=== PATIENT | female | born 1935 | race American Indian/Alaskan Native ===

== ENCOUNTER → 2017-10-18 | Outpatient (CLI) | payer BC ==
[~2017-10-18] MED LIST: ACEDIPPM PO; ACETYLCYSTEINE; ALBU90OI INH; ALBU90OI6 INH; ALBU90OI61 INH; AMLO10 PO; AMLO10/40 PO; AMLO5 PO; ASCO500 PO; ASPI325EC PO; ASPI81CH PO; ASPI81EC PO; ATOR80 PO; CALCA500CH PO; CAND32 PO; CEFD300 PO; CETI10 PO; CETI5 PO; CHLO500 PO; CLOP75; CYCL10 PO; Cipro500 MG PO; ERGO400 PO; ERGO50000 PO; FISH1000 PO; GLIM2; Glucosamine Ch1 EAC4 PO; HYDACE7.5 PO; ISOMON20 PO; ISOMON60ER PO; LEVSOD25 PO; LEVSOD50 PO; LISHYD2012 PO; LORA1 PO; LORTAB 7.5-3251 EACH PO; NITR.4SL; NITR.4SL SL; NITR.4TPA TOP; Norco 5-325 Ta1 EACH PO; OMEP20ER PO; OXYACE5T PO; Omeprazole20 M1 PO; PANT40; POTASSIUM99 MG PO; PROP160ER; PROP160ER PO; ROSU5; SPIR25; SPIR25 PO; ZESTORETIC 20-121 EA PO; Zofran Odt4 MG PO; Zofran Odt4 MG SL; [UNRECOGNIZED DRUG - REMARK]
== END | disposition home or self-care (01) ==
LOC: LAB EV 10:48 → LAB SHORT 10:48
DX: E11.22 Type 2 diabetes mellitus with diabetic chronic kidney disease (principal); N18.9 Chronic kidney disease, unspecified
CPT/HCPCS: 82043

== ENCOUNTER 2018-02-01 11:12 | Day surgery (SDC) | payer BC ==
[~2018-02-01] VITALS: Ht 63 cm; Wt 92.6 kg
== END 2018-02-01 14:19 | disposition home or self-care (01) ==
LOC: ORSCSDS 11:12
PROVIDERS: Ophthalmology
PROC: 08RK3JZ Replacement of Left Lens with Synthetic Substitute, Percutaneous Approach (ICD-10-PCS; principal; 2018-02-01 12:30)
DX: H25.12 Age-related nuclear cataract, left eye (principal); I10 Essential (primary) hypertension; G47.33 Obstructive sleep apnea (adult) (pediatric); J44.9 Chronic obstructive pulmonary disease, unspecified; E11.9 Type 2 diabetes mellitus without complications; I25.2 Old myocardial infarction; E03.9 Hypothyroidism, unspecified; E66.01 Morbid (severe) obesity due to excess calories; Z68.36 Body mass index [BMI] 36.0-36.9, adult; Z79.82 Long term (current) use of aspirin; Z79.899 Other long term (current) drug therapy
CPT/HCPCS: 82947; J2001; J3010; J7120; V2632

== ENCOUNTER 2018-05-15 20:32 | Inpatient (IN) | payer MEDICARE, BC ==
[~2018-05-15] VITALS: Ht 160 cm; Wt 94.0 kg
[~2018-05-15 20:32] MED LIST changes: +CETI5; +CRANBERRY PO; +FISH OIL 500 M1 EAC1 PO; +GLUCOSAMINE 1500 PO; +LISI5 PO; +Norco 7.5-3251 EACH PO; +OMEPRAZOLE MAGN20 MG PO; +Propranolol HCl80 MG PO; +Robaxin500 MG PO
[2018-05-15] MEDS ORDERED: AMLO5 PO (21:55)
[2018-05-15] MEDS ORDERED: ASPI81CH PO (21:56)
[2018-05-15] MEDS ORDERED: ATOR80 PO (21:56)
[2018-05-15] MEDS ORDERED: CRANBERRY250 MG PO (21:57)
[2018-05-15] MEDS ORDERED: FISH OIL 500 M1 EAC1 PO (21:58)
[2018-05-15] MEDS ORDERED: Flovent Diskus50 MCG IH (21:59)
[2018-05-15] MEDS ORDERED: HYDR-86 (22:00)
[2018-05-15] MEDS ORDERED: GLUC500 PO (22:00)
[2018-05-15] MEDS ORDERED: LEVSOD125 PO (22:01)
[2018-05-15] MEDS ORDERED: ISOMON20 (22:01)
[2018-05-15] MEDS ORDERED: LIDO700A20 TOP (22:01)
[2018-05-15] MEDS ORDERED: MIRALAX17 GM PO (22:02)
[2018-05-15] MEDS ORDERED: NITR.4SL SL (22:02)
[2018-05-15] MEDS ORDERED: LISI5 PO (22:02)
[2018-05-15] MEDS ORDERED: Omeprazole20 M1 (22:03)
[2018-05-15] MEDS ORDERED: ALBU90OI61 INH (22:03)
[2018-05-15] MEDS ORDERED: PROP160ER PO (22:03)
[2018-05-15] MEDS ORDERED: METCAR500 PO (22:04)
[2018-05-15] MEDS ORDERED: CETI5 PO (22:29)
[2018-05-15] MEDS ORDERED: ASCO500 PO (22:29)
[2018-05-15] MEDS ORDERED: SPIR25 PO (22:29)
[2018-05-16 00:30] LABS: BASOPHILS ABSOLUTE AUTO 0.07 K/mm3 (0.00-0.23); BASOPHILS PERCENT AUTO 1 % (0-2); EOSINOPHILS ABSOLUTE AUTO 0.38 K/mm3 (0.00-0.68); EOSINOPHILS PERCENT AUTO 4 % (0-6); Hematocrit 32.9 % (33.0-51.0); Hemoglobin 10.5 g/dL (11.5-16.0); IMMATURE GRAN ABSOLUTE AUTO 0.04 K/mm3 (0.00-0.10); IMMATURE GRAN PERCENT AUTO 1 % (0-1); LYMPHOCYTES ABSOLUTE AUTO 2.48 K/mm3 (0.84-5.20); LYMPHOCYTES PERCENT AUTO 28 % (21-46); MONOCYTES ABSOLUTE AUTO 0.86 K/mm3 (0.16-1.47); MONOCYTES PERCENT AUTO 10 % (4-13); Mean Corpuscular HGB 30.7 pg (26.0-34.0); Mean Corpuscular HGB Conc 31.9 g/dL (31.5-36.5); Mean Corpuscular Volume 96 fL (80-100); Mean Platelet Volume 9.9 fL (9.1-12.4); NEUTROPHILS ABSOLUTE AUTO 4.89 K/mm3 (1.96-9.15); NEUTROPHILS PERCENT AUTO 56 % (41-73); Platelet Count 182 K/mm3 (150-400); RDW Coefficient Variation 13.5 % (11.7-14.2); RDW Standard Deviation 48.2 fL (35.1-46.3); Red Blood Cell Count 3.42 M/mm3 (3.80-5.20); White Blood Cell Count 8.72 K/mm3 (4.00-11.30)
[2018-05-16 00:42] LABS: International Normalized Ratio 1.01; Prothrombin Time Results 10.4 Sec (9.7-11.5)
[2018-05-16 00:47] LABS: Albumin, Blood 3.2 g/dL (3.4-5.0); Albumin/Globulin Ratio 0.8 (0.8-1.8); Bilirubin, Total 0.6 mg/dL (0.1-1.0); Bun/Creatinine Ratio 22.3 (12.0-20.0); Calcium, Blood 8.6 mg/dL (8.5-10.1); Creatinine, Blood 1.12 mg/dL (0.40-1.00); Globulin, Blood 4.2 g/dL (2.2-4.0); Potassium, Blood 4.5 mmol/L (3.5-5.5); Total Protein, Blood 7.4 g/dL (6.4-8.2)
[2018-05-16 02:28] LABS: Hematocrit 32.8 % (33.0-51.0); Hemoglobin 10.5 g/dL (11.5-16.0); Mean Corpuscular HGB 31.1 pg (26.0-34.0); Mean Corpuscular Volume 97 fL (80-100); Mean Platelet Volume 9.8 fL (9.1-12.4); Platelet Count 179 K/mm3 (150-400); RDW Coefficient Variation 13.5 % (11.7-14.2); RDW Standard Deviation 48.4 fL (35.1-46.3); Red Blood Cell Count 3.38 M/mm3 (3.80-5.20); White Blood Cell Count 8.26 K/mm3 (4.00-11.30)
[2018-05-16 02:49] LABS: Albumin, Blood 3.3 g/dL (3.4-5.0); Albumin/Globulin Ratio 0.8 (0.8-1.8); Bilirubin, Total 0.7 mg/dL (0.1-1.0); Calcium, Blood 8.6 mg/dL (8.5-10.1); Creatinine, Blood 1.09 mg/dL (0.40-1.00); Globulin, Blood 4.2 g/dL (2.2-4.0); Potassium, Blood 4.2 mmol/L (3.5-5.5); Total Protein, Blood 7.5 g/dL (6.4-8.2)
--- NOTE | 2018-05-16 06:37 | NUR ---
SHIFT SUMMARY PT SLEPT ONLY A FEW HOURS AFTER ARRIVING TO FLOOR AROUND 0115 THIS AM. AOX4. VSS. DENIES N/V @THIS TIME. REPORTS SOB @TIMES BUT DENIES ANY WHILE @REST AT THIS TIME. REPORTS 7/10 PAIN IN LEFT LEG & STATES SHE HAS HAD A HEADACHE SINCE LAST NIGHT, MEDICATED 1X W/2TABS OF 7.5MG NORCO PER ORDERS & PAIN HAS REDUCED TO 4/10. LEFT LEG IS TENDER, SWOLLEN, RED & WARM TO TOUCH. PT IS ABLE TO TRANSFER TO [facility] W/SBA. DAUGHTER HAS BEEN @BEDSIDE T/O NIGHT & CALL LIGHT IS IN REACH.
--- NOTE | 2018-05-16 18:38 | NUR ---
SHIFT SUMMARY PT HAS HAD NO ACUTE CHANGES THIS SHIFT, MEDICATED 2X FOR PAIN, NO OTHER COMPLAINTS OF ANY KIND. PT SCHEDULED FOR PROCEDURE IN AM, NPO AT MIDNIGHT, PT AWARE, CONSENT SIGNED. PT IS BEDRESTING AT THIS TIME W/DAUGHTER AT WILL CONT TO MONITOR UNTIL REPORT GIVEN TO NOC RN.
--- NOTE | 2018-05-17 04:41 | NUR ---
HEPRIN STOP ORDER PT HEPRIN DRIP WITH BE STOPPED AT [address] Shields VIA TELEPHONE ORDER. PT IS GOING TO RAIL DOWELING MACHINE OPERATOR FIRST THEN TO ICU. PT WILL BE GOING BACK TO RAIL DOWELING MACHINE OPERATOR AFTER PERIOD IN ICU. aPTT IS BEING COLLECTED AT 0600 HRS.
--- NOTE | 2018-05-17 05:42 | NUR ---
SHIFT SUMMARY PT HAD UNEVENTFUL SHIFT. PT HAD NO ACUTE CHANGES NOTED. PT HEPRIN IS BEING DC'D AT 0600 HRS AND GOING TO ONLINE COMMUNICATIONS MANAGER THIS AM. PT IS CURRENTLY BREATHING EASY AND COMFORTABLE. CALL LIGHT IN REACH AND FAMILY ARE PRESENT.
[2018-05-17 06:16] LABS: BASOPHILS ABSOLUTE AUTO 0.08 K/mm3 (0.00-0.23); BASOPHILS PERCENT AUTO 1 % (0-2); EOSINOPHILS PERCENT AUTO 4 % (0-6); Hematocrit 27.8 % (33.0-51.0); Hemoglobin 8.9 g/dL (11.5-16.0); IMMATURE GRAN ABSOLUTE AUTO 0.08 K/mm3 (0.00-0.10); IMMATURE GRAN PERCENT AUTO 1 % (0-1); LYMPHOCYTES ABSOLUTE AUTO 2.95 K/mm3 (0.84-5.20); LYMPHOCYTES PERCENT AUTO 35 % (21-46); MONOCYTES PERCENT AUTO 11 % (4-13); Mean Corpuscular HGB 30.7 pg (26.0-34.0); Mean Corpuscular Volume 96 fL (80-100); Mean Platelet Volume 9.9 fL (9.1-12.4); NEUTROPHILS ABSOLUTE AUTO 4.21 K/mm3 (1.96-9.15); NEUTROPHILS PERCENT AUTO 50 % (41-73); Platelet Count 188 K/mm3 (150-400); RDW Coefficient Variation 13.6 % (11.7-14.2); RDW Standard Deviation 48.1 fL (35.1-46.3); White Blood Cell Count 8.52 K/mm3 (4.00-11.30)
[2018-05-17 06:35] LABS: Albumin, Blood 2.7 g/dL (3.4-5.0); Albumin/Globulin Ratio 0.8 (0.8-1.8); Bilirubin, Total 0.4 mg/dL (0.1-1.0); Bun/Creatinine Ratio 18.6 (12.0-20.0); Calcium, Blood 8.3 mg/dL (8.5-10.1); Creatinine, Blood 1.72 mg/dL (0.40-1.00); Globulin, Blood 3.6 g/dL (2.2-4.0); Potassium, Blood 4.7 mmol/L (3.5-5.5); Total Protein, Blood 6.3 g/dL (6.4-8.2)
--- NOTE | 2018-05-17 07:02 | NUR ---
PT BEING TAKEN DOWN TO THE BELT BUCKLE MAKER, FAMILY MEMBERS IN THE ROOM AND AWARE
--- NOTE | 2018-05-17 09:51 | NUR ---
PT ARRIVED FROM [facility] AT 0930. PT IS ALERT AND ORIENTED. TPA AND HEPARIN INFUSING INTO ANGIO SITE IN LLE. LLE IS SWOLLEN, PINK, AND WARM. PT STATES SHE HAS A LITTLE BIT OF TINGLING IN HER L TOES, BUT HAS GOOD CAP REFILL AND PULSE. PT'S FAMILY AT THE BEDSIDE. ALL INSTRUCTED IN PT'S ACTIVITY RESTRICTIONS. PT VERBALIZES UNDERSTANDING. PLAN OF CARE REVIEWED WITH PT AND ALL QUESTIONS ANSWERED.
[2018-05-17 10:22] LABS: Hematocrit 32.3 % (33.0-51.0); Hemoglobin 9.8 g/dL (11.5-16.0)
--- NOTE | 2018-05-17 11:46 | NUR ---
REASSESSMENT: PT VISITED WITH FAMILY AND HAS BEEN SLEEPING SINCE. SHE CONTINUES TO MAINTAIN SPO2 GREATER THAN 95% ON RA. LUNGS ARE CLEAR, SR, BP HAS BEEN STABLE, SEE VITALS. LLE REMAINS PINK AND WARM, STRONG PEDAL PULSE, EDEMA UNCHANGED. CONTINUING TO MONITOR.
--- NOTE | 2018-05-17 12:43 | NUR ---
DR. CHAO BY TO SEE PT. TPA TURNED DOWN TO 0.5MG/HR PER DR. HORNE'S ORDERS.
--- NOTE | 2018-05-17 16:18 | NUR ---
PT TAKEN BACK TO FOUR SLIDE OPERATOR AT 1530. CONSULT CALLED TO DR. BUSTAMANTE, SEE ORDERS.
--- NOTE | 2018-05-17 18:00 | NUR ---
PT BACK FROM [employer]PER[employer]OR [employer] MAKING DEPARTMENT. SHEATH IS OUT OF L POPLITEAL VEIN AND SITE IS C/D/I, SOFT, NO HEMATOMA. PT IS ORIENTED, A LITTLE DROWSY. SPO2 90% ON RA, PLACED ON 1L/NC AND SPO2 94%. DENIES PAIN AT THIS TIME. CONTINUE TO MONITOR.
[2018-05-17 18:11] LABS: Source, Urine Clean Catch
[2018-05-17 18:24] LABS: Appearance, Urine Clear (Clear); Bilirubin, Urine Neg (Neg); Blood, Urine 1+ (Neg); Color, Urine Yellow (P-Yellow); Glucose Qualitative, Urine Neg (Neg); Ketones, Urine Neg (Neg); Leukocyte Esterase, Urine 1+ (Neg); Nitrite, Urine Neg (Neg); Protein, Urine 2+ (Neg); Urobilinogen, Urine NORM (Normal)
--- NOTE | 2018-05-17 19:15 | NUR ---
ASSUMED PT CARE RECEIVED REPORT FROM SUKHDEV WRIGHT. PT IS ALERT AND ORIENTED RESTING IN BED WITH FAMILY AT BEDSIDE. SITE TO LEFT POPLITEAL ASSESSED TOGETHER; MINIMAL OOZING TO CENTER OF DRESSING THAT APPEARS DRIED; TENDER UPON PALPATION; WARM AND RED AROUND SITE; NO HEMATOMA PALPATED. NS INFUSING AT 75MLS/HR VIA 20G IN RIGHT FOREARM. PT STATES 9/10 PAIN TO BACK; OFFERED REPOSITIONING. PT REQUESTED PRN PAIN MEDICATION; PAIN MEDICATION OBTAINED PER ORDERS. PT ALSO REQUESTED FOOD; SAT UP AT 90 DEGREES AND PT RECEIVED HALF OF A TURKEY SANDWICH. PT DOES NOT APPEAR TO BE IN ANY ACUTE DISTRESS AT THIS TIME.
[2018-05-17 19:26] LABS: Bacteria Few /hpf; Squamous Epithelial Cells Few /hpf (Few)
--- NOTE | 2018-05-17 20:00 | NUR ---
LEFT POPLITEAL SITE REMAINS TENDER TO THE TOUCH, WARM, NO OOZING AT SITE, WITH NO SIGNS OF HEMATOMA PALPATED AROUND SITE.
--- NOTE | 2018-05-17 21:00 | NUR ---
LEFT POPLITEAL SITE REMAINS WARM, RED, AND TENDER TO THE TOUCH; NO OOZING FROM SITE; NO SIGNS OF HEMATOMA PALPATED AROUND SITE. HEPARIN GTT CONTINUES TO INFUSE.
--- NOTE | 2018-05-17 22:00 | NUR ---
CPAP PT PLACED ON CPAP D/T OXYGEN SATURATIONS DECLINING TO MID 80'S
--- NOTE | 2018-05-17 22:00 | NUR ---
LEFT POPLITEAL SITE REMAINS WARM, RED, AND TENDER TO THE TOUCH; NO OOZING FROM SITE; NO SIGNS OF A HEMATOMA PALPATED; HEPARIN GTT CONTINUES TO INFUSE.
[2018-05-18 03:36] LABS: BASOPHILS ABSOLUTE AUTO 0.06 K/mm3 (0.00-0.23); BASOPHILS PERCENT AUTO 1 % (0-2); EOSINOPHILS ABSOLUTE AUTO 0.26 K/mm3 (0.00-0.68); EOSINOPHILS PERCENT AUTO 4 % (0-6); Hematocrit 26.4 % (33.0-51.0); Hemoglobin 8.4 g/dL (11.5-16.0); IMMATURE GRAN ABSOLUTE AUTO 0.08 K/mm3 (0.00-0.10); IMMATURE GRAN PERCENT AUTO 1 % (0-1); LYMPHOCYTES ABSOLUTE AUTO 2.27 K/mm3 (0.84-5.20); LYMPHOCYTES PERCENT AUTO 30 % (21-46); MONOCYTES ABSOLUTE AUTO 0.81 K/mm3 (0.16-1.47); MONOCYTES PERCENT AUTO 11 % (4-13); Mean Corpuscular HGB Conc 31.8 g/dL (31.5-36.5); Mean Corpuscular Volume 97 fL (80-100); Mean Platelet Volume 10.2 fL (9.1-12.4); NEUTROPHILS PERCENT AUTO 54 % (41-73); Platelet Count 176 K/mm3 (150-400); RDW Coefficient Variation 13.7 % (11.7-14.2); RDW Standard Deviation 48.8 fL (35.1-46.3); Red Blood Cell Count 2.71 M/mm3 (3.80-5.20); White Blood Cell Count 7.48 K/mm3 (4.00-11.30)
[2018-05-18 03:52] LABS: Albumin, Blood 2.4 g/dL (3.4-5.0); Anion Gap 6 mmol/L (6-16); Blood Urea Nitrogen 21 mg/dL (8-24); Bun/Creatinine Ratio 20.6 (12.0-20.0); CO2, Blood 22 mmol/L (21-32); Calcium, Blood 7.8 mg/dL (8.5-10.1); Chloride, Blood 116 mmol/L (98-108); Creatinine, Blood 1.02 mg/dL (0.40-1.00); Glomerular Filtration Rate 55 (60-); Glucose, Blood 117 mg/dL (70-99); Magnesium, Blood 1.9 mg/dL (1.6-2.4); Phosphorus, Blood 2.7 mg/dL (2.5-4.9); Potassium, Blood 4.5 mmol/L (3.5-5.5); Sodium, Blood 144 mmol/L (136-145)
--- NOTE | 2018-05-18 06:22 | NUR ---
END OF SHIFT SUMMARY SITE TO LEFT POPLITEAL HAS REMAINED WARM TO THE TOUCH, TENDER UPON PALPATION, NO OOZING NOTED, WELL NO SIGNS OF A HEMATOMA; DRESSING REMAINS CDI. PT STATES SHE HAS A PAIN ON THE SIDE OF HER FOOT; STATES IT "KIND OF FEELS LIKE NUMBNESS/TINGLING". HEAVY BLANKETS WERE RELIEVED OFF OF FOOT AND LEG WAS ELEVATED ON A PILLOW. PT HAS BEEN MEDICATED WITH PRN PERCOCET IS REQUESTED, AND PER ORDERS. PT CONTINUES WITH HEPARIN INFUSING AT 21UNITS/KG, WELL NS AT 50MLS/HR. PT'S OXYGEN SATURATIONS CONTINUED TO DECLINE T/O NIGHT; PT STATES SHE IS "SUPPOSED" TO WEAR A CPAP AT HOME, BUT CAN'T TOLERATE THE TIES AROUND THE MASK. ENCOURAGED PT TO GO SPEAK WITH ILENE REGARDING THE DIFFERENT TYPES OF MASKS AND TIES; REINFORCED HOW MUCH SHE WAS DECLINING IN OXYGEN SATURATIONS WITHOUT THE CPAP. PT AGREED TO TRY THE CPAP HERE, BUT ENDED UP REMOVING IT AFTER APPROXIMATELY TWO HOURS AND WENT TO 5L OF OXYGEN VIA FACE MASK. PT HAS BEEN PLEASANT AND COOPERATIVE; VERY SORE AND TENDER. PT APPEARS COMFORTABLE AT THIS TIME WITH FAMILY AT BEDSIDE.
--- NOTE | 2018-05-18 07:30 | NUR ---
ASSUMED CARE OF PATIENT; SEE ASSESSMENT CHARTING FOR DETAILS. PATIENT SLEEPY BUT ROUSES EASILY AND IS ORIENTED AND COOPERATIVE; DAUGHTER AT BEDSIDE. PAIN TO RLE; MEDICATED PO, PRN WITH FAIR CONTROL. BILAT. FEET WARM WITH GOOD COLOR AND PULSES. NO S/SX'S OF HEMATOMA TO RLE. REMAINS ON HEPARIN INFUSION; CURRENTLY AT 21U/KG/HR; REPEAT PTT AT 1000AM. FIELDS TO GRAVITY; WILL REMOVE ONCE PATIENT TOLERATING OOB WITHOUT DIFFICULTY. REMAINS PCU STATUS; NO BEDS AVAILABLE.
--- NOTE | 2018-05-18 09:30 | NUR ---
BATHED AND THEN ASSISTED OOB (WALKER AND SBA) TO CHAIR; DIAMOND QUIGLEY. DC'D PRIOR TO BATH. HAIR SHAMPOOED WHEN UP IN CHAIR; TAM. WELL. DAUGHTER AT BEDSIDE.
--- NOTE | 2018-05-18 09:50 | NUR ---
DR. SNOW ([facility]/PCP) IN TO SEE PATIENT; SEE ORDERS. PAIN MEDS. READJUSTED AND KNEE HIGH RYAN ORDERED FOR LLE.
--- NOTE | 2018-05-18 14:51 | NUR ---
UP TO BEDSIDE COMMODE; VOIDED 530ML OF [place] COLORED URINE. UP WITH WALKER AND SBA.
--- NOTE | 2018-05-18 18:00 | NUR ---
SUMMARY: ASSISTED IN/OUT OF BED BUT ABLE TO TRANSFER SELF WITH USE OF WALKER. BALANCE GOOD AND ENDURANCE ADEQUATE. ON 4L/NC T/O MOST OF DAY. ORAL PAIN MEDS GIVEN ABOUT EVERY 4 HOURS; BACK SPASMS AND PAIN TO LLE. GOOD CIRCULATION TO BILAT. LE'S.; L LEG/FOOT WARMER THAN R AND MORE SWOLLEN; RYAN HOSE IN PLACE. NO ISSUES VOIDING SINCE DIAMOND ADKINS THIS AM. WILL REPORT TO ONCOMING RN.
--- NOTE | 2018-05-18 18:39 | NUR ---
T/C TO PHARMACIST, DELLA, RE: PTT RESULT OF 65.7 SEC; HEPARIN GTT TO CONTINUE AT 21U/KG/HR AND REPEAT LAB IN AM.
--- NOTE | 2018-05-18 19:00 | NUR ---
[place] of Care: Patient alert and oriented x4, sitting upright in bed watching tv. Denies dyspnea/SOB, O2-96% on 2L/NC, VSS. C/O pain to back (chronic), 12/22 plan to give prn pain medications and continue to monitor. C/o pain to left leg at rest 07/22 also tender to touch, patient states pain is much better than before her peripheral interventions, 1 + edema noted, compression stocking in place, no redness or excess warmth. Heparin gtt infusing at 21u/kg/hr doses at 68kg, confirmed with EMAR, next PTT at 0500hr. Pleasant and cooperative with staff, makes needs known, call light in reach. Will continue to monitor for pain, comfort, safety.
[2018-05-19 03:40] LABS: BASOPHILS ABSOLUTE AUTO 0.05 K/mm3 (0.00-0.23); BASOPHILS PERCENT AUTO 1 % (0-2); EOSINOPHILS ABSOLUTE AUTO 0.31 K/mm3 (0.00-0.68); EOSINOPHILS PERCENT AUTO 4 % (0-6); Hematocrit 25.6 % (33.0-51.0); Hemoglobin 8.1 g/dL (11.5-16.0); IMMATURE GRAN ABSOLUTE AUTO 0.11 K/mm3 (0.00-0.10); IMMATURE GRAN PERCENT AUTO 2 % (0-1); LYMPHOCYTES PERCENT AUTO 37 % (21-46); MONOCYTES ABSOLUTE AUTO 0.73 K/mm3 (0.16-1.47); MONOCYTES PERCENT AUTO 10 % (4-13); Mean Corpuscular HGB 30.6 pg (26.0-34.0); Mean Corpuscular HGB Conc 31.6 g/dL (31.5-36.5); Mean Corpuscular Volume 97 fL (80-100); Mean Platelet Volume 10.4 fL (9.1-12.4); NEUTROPHILS ABSOLUTE AUTO 3.34 K/mm3 (1.96-9.15); NEUTROPHILS PERCENT AUTO 46 % (41-73); NRBC ABSOLUTE 0.02 K/mm3 (0.00-0.02); NRBC Auto 0.3 /100 WBC (0.0-0.2); Platelet Count 189 K/mm3 (150-400); RDW Coefficient Variation 13.7 % (11.7-14.2); RDW Standard Deviation 48.2 fL (35.1-46.3); Red Blood Cell Count 2.65 M/mm3 (3.80-5.20); White Blood Cell Count 7.24 K/mm3 (4.00-11.30)
[2018-05-19 03:58] LABS: Magnesium, Blood 1.9 mg/dL (1.6-2.4)
[2018-05-19 03:59] LABS: Albumin, Blood 2.3 g/dL (3.4-5.0); Anion Gap 5 mmol/L (6-16); Blood Urea Nitrogen 17 mg/dL (8-24); Bun/Creatinine Ratio 17.1 (12.0-20.0); CO2, Blood 25 mmol/L (21-32); Calcium, Blood 8.2 mg/dL (8.5-10.1); Chloride, Blood 114 mmol/L (98-108); Creatinine, Blood 0.99 mg/dL (0.40-1.00); Glomerular Filtration Rate 57 (60-); Glucose, Blood 107 mg/dL (70-99); Potassium, Blood 4.6 mmol/L (3.5-5.5); Sodium, Blood 144 mmol/L (136-145)
--- NOTE | 2018-05-19 05:39 | NUR ---
Shift Summary: Patient slept well throughout shift, easily roused via verbal stimuli, oriented x4. C/O back effective managed with prn [place] x2 tabs before bed, and x1 prn Percocet late in shift. Denies dyspnea and SOB, O2-91-94% on 2L/NC. Transferring to [facility] via stand-by assist without difficulty. Voiding without difficulty, light yellow clear urine. Heparin gtt continued at 21u/kg/hr throughout shift, no change in rate (per pharmacy) with morning PTT values, Next PTT at 1000hr. Peripheral IV to RFA remains patent and intact. No change noted to LLE, remains at 1+ edema, tender to touch, no redness, compression stocking in place throughout shift. Will continue to monitor until report to day shift RN.
--- NOTE | 2018-05-19 07:15 | NUR ---
DR. BUSTAMANTE HERE; SEE ORDERS.
--- NOTE | 2018-05-19 07:20 | NUR ---
ASSUMED CARE OF PATIENT; SEE ASSESSMENT CHARTING FOR DETAILS. PATIENT ALERT/COOPERATIVE. CHRONIC PAIN TO LOWER BACK; WORSE WHEN SPASMS DEVELOP; MEDICATED PO, PRN. LUNGS CLEAR; OXYGEN AT 2L/MIN VIA NC. UP TO BSC WITH MINIMAL ASSIST.; WALKER USED/BALANCE GOOD; VOIDING LARGE AMOUNTS OF MED. TO LT. YELLOW URINE. SWELLING REMAINS TO LLE (FOOT AND CALF); KNEE HIGH RYAN HOSE IN PLACE. PAIN LESS ACUTE TO AFFECTED LEG, SINCE STENT PLACED.
--- NOTE | 2018-05-19 09:00 | NUR ---
DR. SNOW (HOSP.) HERE; TO TALK TO RADIOLOGY INTERVENTIONALIST RE: ANTICOAG. SANDERS (POC).
--- NOTE | 2018-05-19 09:55 | NUR ---
LAB HERE; DRAWING PTT PER ORDER. HEPARIN GTT REMAINS 21 UNITS/KG/MIN.
--- NOTE | 2018-05-19 10:15 | NUR ---
HEPARIN DRIP DISCONTINUED; XARELTO TO BE GIVEN BID PO.
--- NOTE | 2018-05-19 12:30 | NUR ---
UP FOR BRP; NO BM; STOOL SOFTENER AND PAIN MED. GIVEN.
--- NOTE | 2018-05-19 16:30 | NUR ---
UP TO BSC WITH WALKER AND STANDBY ASSIST; HAD 1 SMALL HARD STOOL AND VOIDED 600ML/ URINE LT. YELLOW.
--- NOTE | 2018-05-19 17:32 | NUR ---
SUMMARY: NO ACUTE CHANGES. DR. SNOW MADE ROUNDS, AGAIN, THIS EVENING; OK GIVEN TO GIVE TUMS PRN FOR INDIGESTION. PATIENT C/O MILD GI UPSET; ZOFRAN IV GIVEN AND PRILOSEC, ALSO. PROBABLE D/C TOMORROW, PER DR. SNOW. DISCUSSED WITH PATIENT PRECAUTIONARY MEASURES RELATING TO XARELTO (BLOOD THINNERS). IVF'S ETC REMAIN OFF. MAJORITY OF PAIN IN BACK; LLE LESS PAINFUL; SOME SWELLING REMAINS PRESENT. UP FOR BRP WITH WALKER AND SBA. OXYGEN DOWN TO 1LITER/MIN VIA NC; BIOX. READINGS STAYING 93 -97%.
--- NOTE | 2018-05-19 19:00 | NUR ---
[place] of Care: Patient alert and oriented x4, sitting upright in bed watching tv. Denies dyspnea or SOB, O2-94%on 2L/NC, VSS. C/o back pain 8/ prn [place] given, will monitor for effect. Peripheral IV x1 patent and intact. Compression stocking in place to lt leg, patient c/o tender to touch (no change r/t last NOC), swelling appears slightly decreased now at 1-2+, and no redness noted. Call light in reach, makes needs known. Will continue to monitor for pain, comfort, safety.
[2018-05-20 03:39] LABS: Hematocrit 26.5 % (33.0-51.0); Hemoglobin 8.5 g/dL (11.5-16.0)
[2018-05-20 03:57] LABS: Albumin, Blood 2.5 g/dL (3.4-5.0); Anion Gap 8 mmol/L (6-16); Blood Urea Nitrogen 16 mg/dL (8-24); Bun/Creatinine Ratio 17.4 (12.0-20.0); CO2, Blood 24 mmol/L (21-32); Calcium, Blood 8.6 mg/dL (8.5-10.1); Chloride, Blood 112 mmol/L (98-108); Creatinine, Blood 0.92 mg/dL (0.40-1.00); Glomerular Filtration Rate >60 (60-); Glucose, Blood 99 mg/dL (70-99); Magnesium, Blood 1.7 mg/dL (1.6-2.4); Phosphorus, Blood 3.2 mg/dL (2.5-4.9); Potassium, Blood 4.6 mmol/L (3.5-5.5); Sodium, Blood 144 mmol/L (136-145)
--- NOTE | 2018-05-20 06:02 | NUR ---
Shift Summary: Patient slept well throughout shift, easily roused via verbal stimuli, oriented x4. Continues to deny dyspnea/SOB, VSS. C/o back pain effectively managed with prn medications. No changes noted to LLE, 1-2 + edema, mild pain to touch, cap refill wnl, warm, no redness, compression stocking in place. Transferring to bedside commode via stand-by assist without difficulty. Call light in reach, makes needs known. Will continue to monitor until report to day shift RN.
[2018-05-20] MEDS ORDERED: DOCU100 PO (10:03)
[2018-05-20] MEDS ORDERED: XARELTO20 MG PO ×2 (10:06→10:10)
[2018-05-20] MEDS ORDERED: XARELTO15 MG PO (10:08)
--- NOTE | 2018-05-20 10:12 | NUR ---
Assumed Care: Assumed care of pt at approx 0700. VSS. In no apparent sign of distress. Pt is A&Ox4. Calls appropriately. C/o back and LLE pain this AM - medicated per orders. See shift assessment for detailed assessment. Pt is being discharged today. Pt titrated off oxygen shortly after shift change and is tolerating being on RA well with SpO2 >92%. Pt currently resting in bed with call light within reach. Denies any further questions, complaints or requests at this time. Will continue to monitor until discharged.
--- NOTE | 2018-05-20 11:36 | NUR ---
Discharge Pt discharged at 1130. VSS. In no apparent sign of distress. Discharged with family. Denied any further questions, complaints or requests at time of discharge. Discharge education provided. Discharged with all belongings in hand.
[2018-05-21 16:07] LABS: PROTEIN C-FUNCTIONAL 113 % (73-180); PROTEIN S-FUNCTIONAL 96 % (63-140)
== END 2018-05-20 11:30 | disposition home or self-care (01) | DRG 271 ==
LOC: ER 20:32 → MEDS 20:33 → ICUE 20:33 → MEDS 20:33 → ICUE 05-16 01:01 → MEDS 05-16 01:14 → ICUE 05-17 09:31
PROVIDERS: Emergency Medicine; Hospitalist; Internal Medicine Nephrology; Radiology Diagnostic Radiology; ADMIT Internal Medicine
PROC: 06CN3ZZ Extirpation of Matter from Left Femoral Vein, Percutaneous Approach (ICD-10-PCS; principal; 2018-05-17)
PROC: 067D3DZ Dilation of Left Common Iliac Vein with Intraluminal Device, Percutaneous Approach (ICD-10-PCS; 2018-05-17)
PROC: 067G3ZZ Dilation of Left External Iliac Vein, Percutaneous Approach (ICD-10-PCS; 2018-05-17)
PROC: 06CD3ZZ Extirpation of Matter from Left Common Iliac Vein, Percutaneous Approach (ICD-10-PCS; 2018-05-17)
PROC: 06CG3ZZ Extirpation of Matter from Left External Iliac Vein, Percutaneous Approach (ICD-10-PCS; 2018-05-17)
PROC: 3E03317 Introduction of Other Thrombolytic into Peripheral Vein, Percutaneous Approach (ICD-10-PCS; 2018-05-17)
PROC: B549ZZ3 Ultrasonography of Inferior Vena Cava, Intravascular (ICD-10-PCS; 2018-05-17)
DX: I87.1 Compression of vein (principal); I82.412 Acute embolism and thrombosis of left femoral vein; N17.9 Acute kidney failure, unspecified; I82.422 Acute embolism and thrombosis of left iliac vein; I82.442 Acute embolism and thrombosis of left tibial vein; I82.432 Acute embolism and thrombosis of left popliteal vein; E11.22 Type 2 diabetes mellitus with diabetic chronic kidney disease; E88.09 Other disorders of plasma-protein metabolism, not elsewhere classified; E86.9 Volume depletion, unspecified; E66.9 Obesity, unspecified; D64.9 Anemia, unspecified; N18.3 Chronic kidney disease, stage 3 (moderate); I12.9 Hypertensive chronic kidney disease with stage 1 through stage 4 chronic kidney disease, or unspecified chronic kidney disease; E78.5 Hyperlipidemia, unspecified; Z96.652 Presence of left artificial knee joint; E03.9 Hypothyroidism, unspecified; K21.9 Gastro-esophageal reflux disease without esophagitis; Z79.899 Other long term (current) drug therapy; Z79.82 Long term (current) use of aspirin; Z88.8 Allergy status to other drugs, medicaments and biological substances; Z88.4 Allergy status to anesthetic agent; Z28.20 Immunization not carried out because of patient decision for unspecified reason
CPT/HCPCS: 36005; 36415; 37187; 37212; 37238; 37252; 75820; 76770; 76937; 80048; 80053; 80069; 81001; 81240; 81241; 82947; 83735; 84300; 85014; 85018; 85025; 85027; 85303; 85306; 85384; 85610; 85730; 87086; 93306; 93971; 94640; 94660; 94760; 96374; 96375; 96376; 99152; 99153; 99285-25; C1724; C1725; C1757; C1769; C1876; C1894; G0378; J1644; J2250; J2405; J3010; J7030; J7040; Q9967

== ENCOUNTER 2018-06-28 13:22 | Day surgery (SDC) | payer BC ==
[~2018-06-28] VITALS: Ht 157.5 cm; Wt 92.7 kg
[~2018-06-28 13:22] MED LIST changes: +CRANBERRY250 MG PO; +DOCU100 PO; +Flovent Diskus50 MCG IH; +GLUC500 PO; +HYDR-86; +ISOMON20; +LEVSOD125 PO; +LIDO700A20 TOP; +METCAR500 PO; +MIRALAX17 GM PO; +Omeprazole20 M1; +XARELTO15 MG PO; +XARELTO20 MG PO
== END 2018-06-28 15:10 | disposition home or self-care (01) ==
LOC: ORSCSDS 13:22
PROVIDERS: Ophthalmology
PROC: 08RJ3JZ Replacement of Right Lens with Synthetic Substitute, Percutaneous Approach (ICD-10-PCS; principal; 2018-06-28 15:00)
DX: H25.11 Age-related nuclear cataract, right eye (principal); E11.22 Type 2 diabetes mellitus with diabetic chronic kidney disease; I12.9 Hypertensive chronic kidney disease with stage 1 through stage 4 chronic kidney disease, or unspecified chronic kidney disease; N18.9 Chronic kidney disease, unspecified; I25.10 Atherosclerotic heart disease of native coronary artery without angina pectoris; J44.9 Chronic obstructive pulmonary disease, unspecified; G47.33 Obstructive sleep apnea (adult) (pediatric); E03.9 Hypothyroidism, unspecified; K21.9 Gastro-esophageal reflux disease without esophagitis; E66.01 Morbid (severe) obesity due to excess calories; Z68.37 Body mass index [BMI] 37.0-37.9, adult; Z79.82 Long term (current) use of aspirin; Z79.899 Other long term (current) drug therapy
CPT/HCPCS: 82947; J2001; J2250; J3010; V2632

== ENCOUNTER → 2018-10-15 | Outpatient (CLI) | payer BC, OTHER ==
[2018-10-15 10:43] LABS: Protein, Urine Quantitative 5.4 mg/dL (0.0-11.9)
[2018-10-15 10:47] LABS: Microalbumin, Urine Quant. <5.000 mg/L (0.000-20.000)
== END | disposition home or self-care (01) ==
LOC: LAB SHORT 09:13 → LAB 09:13
PROVIDERS: Internal Medicine Nephrology
DX: N18.2 Chronic kidney disease, stage 2 (mild) (principal); D63.1 Anemia in chronic kidney disease; N25.81 Secondary hyperparathyroidism of renal origin; E55.9 Vitamin D deficiency, unspecified; E78.00 Pure hypercholesterolemia, unspecified; D51.8 Other vitamin B12 deficiency anemias; D52.8 Other folate deficiency anemias; D50.9 Iron deficiency anemia, unspecified; R76.9 Abnormal immunological finding in serum, unspecified; R94.5 Abnormal results of liver function studies; R94.6 Abnormal results of thyroid function studies
CPT/HCPCS: 81050; 82043; 82570; 84156

== ENCOUNTER 2018-11-24 05:29 | Emergency (ER) | payer BC, OTHER ==
[~2018-11-24] VITALS: Ht 160 cm; Wt 90.7 kg
[2018-11-24 06:02] LABS: BASOPHILS ABSOLUTE AUTO 0.03 K/mm3 (0.00-0.23); BASOPHILS PERCENT AUTO 0 % (0-2); EOSINOPHILS ABSOLUTE AUTO 0.24 K/mm3 (0.00-0.68); EOSINOPHILS PERCENT AUTO 3 % (0-6); Hematocrit 37.2 % (33.0-51.0); Hemoglobin 11.7 g/dL (11.5-16.0); IMMATURE GRAN ABSOLUTE AUTO 0.01 K/mm3 (0.00-0.10); IMMATURE GRAN PERCENT AUTO 0 % (0-1); LYMPHOCYTES ABSOLUTE AUTO 1.16 K/mm3 (0.84-5.20); LYMPHOCYTES PERCENT AUTO 15 % (21-46); MONOCYTES ABSOLUTE AUTO 0.59 K/mm3 (0.16-1.47); MONOCYTES PERCENT AUTO 8 % (4-13); Mean Corpuscular HGB 30.5 pg (26.0-34.0); Mean Corpuscular HGB Conc 31.5 g/dL (31.5-36.5); Mean Corpuscular Volume 97 fL (80-100); Mean Platelet Volume 10.5 fL (9.1-12.4); NEUTROPHILS ABSOLUTE AUTO 5.48 K/mm3 (1.96-9.15); NEUTROPHILS PERCENT AUTO 73 % (41-73); Platelet Count 239 K/mm3 (150-400); RDW Coefficient Variation 13.6 % (11.7-14.2); RDW Standard Deviation 48.9 fL (35.1-46.3); Red Blood Cell Count 3.83 M/mm3 (3.80-5.20); White Blood Cell Count 7.51 K/mm3 (4.00-11.30)
[2018-11-24 06:19] LABS: Alanine Aminotransfer (ALT/SGP 28 U/L (12-78); Albumin, Blood 3.3 g/dL (3.4-5.0); Albumin/Globulin Ratio 0.8 (0.8-1.8); Alk Phos 83 U/L (50-136); Anion Gap 7 mmol/L (6-16); Aspartate Aminotrans (AST/SGOT 27 U/L (12-37); Bilirubin, Total 0.6 mg/dL (0.1-1.0); Blood Urea Nitrogen 13 mg/dL (8-24); CO2, Blood 23 mmol/L (21-32); Calcium, Blood 8.5 mg/dL (8.5-10.1); Chloride, Blood 110 mmol/L (98-108); Creatinine, Blood 0.87 mg/dL (0.40-1.00); Globulin, Blood 4.1 g/dL (2.2-4.0); Glomerular Filtration Rate >60 (60-); Glucose, Blood 132 mg/dL (70-99); Sodium, Blood 140 mmol/L (136-145); Total Protein, Blood 7.4 g/dL (6.4-8.2)
[2018-11-24 06:27] LABS: Source, Urine Catheter
[2018-11-24 06:38] LABS: Bilirubin, Urine Neg (Neg); Blood, Urine Neg (Neg); Glucose Qualitative, Urine Neg (Neg); Ketones, Urine Neg (Neg); Leukocyte Esterase, Urine Neg (Neg); Nitrite, Urine Neg (Neg); Protein, Urine 2+ (Neg); Specific Gravity, Urine 1.025 (1.003-1.022); Urobilinogen, Urine NORM (Normal)
[2018-11-24 06:46] LABS: Appearance, Urine Clear (Clear); Color, Urine Yellow (P-Yellow)
[2018-11-24 06:48] LABS: White Blood Cells, Urine 0-2 /hpf (0-5)
[2018-11-24 06:49] LABS: Bacteria Rare /hpf; Red Blood Cells, Urine 0-2 /hpf (0-2); Squamous Epithelial Cells Rare /hpf (Few)
[2018-11-24 06:50] LABS: Amorphous Light (0-Heavy)
[2018-11-24] MEDS ORDERED: METCAR500 PO (06:52)
[2018-11-24] MEDS ORDERED: PROM25 PO (12:36)
== END 2018-11-24 12:55 | disposition home or self-care (01) ==
LOC: ER 05:29
PROVIDERS: Emergency Medicine
DX: K52.9 Noninfective gastroenteritis and colitis, unspecified (principal); E86.0 Dehydration; I10 Essential (primary) hypertension; E11.9 Type 2 diabetes mellitus without complications; Z88.8 Allergy status to other drugs, medicaments and biological substances; Z79.899 Other long term (current) drug therapy
CPT/HCPCS: 36415; 74177; 80053; 81001; 83690; 84484; 85025; 93005; 93010; 96361-59; 96374-59; 96375-59; 96376-59; 99284-25; J2405; J2550; J7120; P9612; Q9967

== ENCOUNTER → 2018-11-26 | Outpatient (CLI) | payer BC, OTHER ==
[~2018-11-26] MED LIST changes: +PROM25 PO
[2018-11-26 19:50] LABS: Campylobacter Sp Not Detected (NOT DETECT); Cryptosporidium Not Detected (NOT DETECT); Cyclospora Cayetanensis Not Detected (NOT DETECT); E. Coli O157 Not Detected (NOT DETECT); Entamoeba Histolytica Not Detected (NOT DETECT); Enteroaggregative E. coli-EAEC Not Detected (NOT DETECT); Enteropathogenic E. coli-EPEC Not Detected (NOT DETECT); Enterotoxigenic E. coli-ETEC Not Detected (NOT DETECT); Giardia Lamblia Not Detected (NOT DETECT); Plesiomonas Shigelloides Not Detected (NOT DETECT); Salmonella Sp Not Detected (NOT DETECT); Shiga Toxin-prod E. coli-STEC Not Detected (NOT DETECT); Shigella/Enteroin E. coli-EIEC Not Detected (NOT DETECT); Vibrio Cholerae Not Detected (NOT DETECT); Vibrio Sp Not Detected (NOT DETECT); Yersinia Enterocolitica Not Detected (NOT DETECT)
[2018-11-26 19:51] LABS: Adenovirus F 40/41 Not Detected (NOT DETECT); Astrovirus Not Detected (NOT DETECT); Norovirus GI/GII Detected (NOT DETECT); Rotavirus A Not Detected (NOT DETECT); Sapovirus Not Detected (NOT DETECT)
== END | disposition home or self-care (01) ==
LOC: LAB 15:18 → LAB SHORT 15:18
PROVIDERS: Emergency Medicine
DX: G40.89 Other seizures (principal)
CPT/HCPCS: 0097U

== ENCOUNTER → 2018-12-26 | Outpatient (CLI) | payer BC, OTHER ==
[2018-12-26 16:16] LABS: BASOPHILS PERCENT AUTO 1 % (0-2); EOSINOPHILS PERCENT AUTO 3 % (0-6); Hematocrit 39.2 % (33.0-51.0); Hemoglobin 12.6 g/dL (11.5-16.0); IMMATURE GRAN ABSOLUTE AUTO 0.04 K/mm3 (0.00-0.10); IMMATURE GRAN PERCENT AUTO 1 % (0-1); LYMPHOCYTES ABSOLUTE AUTO 3.36 K/mm3 (0.84-5.20); LYMPHOCYTES PERCENT AUTO 38 % (21-46); MONOCYTES ABSOLUTE AUTO 0.83 K/mm3 (0.16-1.47); MONOCYTES PERCENT AUTO 10 % (4-13); Mean Corpuscular HGB 30.2 pg (26.0-34.0); Mean Corpuscular HGB Conc 32.1 g/dL (31.5-36.5); Mean Corpuscular Volume 94 fL (80-100); Mean Platelet Volume 10.2 fL (9.1-12.4); NEUTROPHILS ABSOLUTE AUTO 4.15 K/mm3 (1.96-9.15); NEUTROPHILS PERCENT AUTO 47 % (41-73); Platelet Count 233 K/mm3 (150-400); RDW Coefficient Variation 13.3 % (11.7-14.2); RDW Standard Deviation 45.2 fL (35.1-46.3); Red Blood Cell Count 4.17 M/mm3 (3.80-5.20); White Blood Cell Count 8.78 K/mm3 (4.00-11.30)
[2018-12-26 16:19] LABS: Calcium, Blood 9.4 mg/dL (8.5-10.1); Creatinine, Blood 1.33 mg/dL (0.40-1.00); Potassium, Blood 4.3 mmol/L (3.5-5.5)
== END | disposition home or self-care (01) ==
LOC: LAB EV 16:11 → LAB SHORT 16:11
PROVIDERS: Physician Assistant Surgical
DX: R42 Dizziness and giddiness (principal)
CPT/HCPCS: 80048; 83880; 85025

== ENCOUNTER → 2019-02-25 | Outpatient (CLI) | payer BC, OTHER | LOC: LAB EV 18:20 → LAB SHORT 18:20 | DX: N39.0 Urinary tract infection, site not specified (principal) | CPT/HCPCS: 87077; 87086; 87186 ==

== ENCOUNTER → 2019-05-22 | Outpatient (CLI) | payer BC | END | disposition home or self-care (01) | LOC: LAB SHORT 11:38 → PLD 11:38 | DX: D04.39 Carcinoma in situ of skin of other parts of face (principal); C44.329 Squamous cell carcinoma of skin of other parts of face | CPT/HCPCS: 88305 ==

== ENCOUNTER 2020-01-10 21:06 | Emergency (ER) | payer BC ==
[~2020-01-10] VITALS: Ht 160 cm; Wt 87.5 kg
== END 2020-01-10 22:49 | disposition home or self-care (01) ==
LOC: ER 21:06
DX: S09.90XA Unspecified injury of head, initial encounter (principal); E11.9 Type 2 diabetes mellitus without complications; I10 Essential (primary) hypertension; Z88.8 Allergy status to other drugs, medicaments and biological substances; Z88.4 Allergy status to anesthetic agent; Z88.1 Allergy status to other antibiotic agents; Z79.899 Other long term (current) drug therapy; W01.198A Fall on same level from slipping, tripping and stumbling with subsequent striking against other object, initial encounter; Y93.89 Activity, other specified
CPT/HCPCS: 70450; 99283-25

== ENCOUNTER 2020-02-21 11:52 | Emergency (ER) | payer BC, MEDICARE ==
[~2020-02-21] VITALS: Ht 160 cm; Wt 90.3 kg
[2020-02-21 13:16] LABS: BASOPHILS PERCENT AUTO 1 % (0-2); EOSINOPHILS PERCENT AUTO 7 % (0-6); Hematocrit 33.1 % (33.0-51.0); Hemoglobin 10.4 g/dL (11.5-16.0); IMMATURE GRAN ABSOLUTE AUTO 0.05 K/mm3 (0.00-0.10); IMMATURE GRAN PERCENT AUTO 1 % (0-1); LYMPHOCYTES ABSOLUTE AUTO 2.22 K/mm3 (0.84-5.20); LYMPHOCYTES PERCENT AUTO 26 % (21-46); MONOCYTES ABSOLUTE AUTO 0.64 K/mm3 (0.16-1.47); MONOCYTES PERCENT AUTO 8 % (4-13); Mean Corpuscular HGB 30.9 pg (26.0-34.0); Mean Corpuscular HGB Conc 31.4 g/dL (31.5-36.5); Mean Corpuscular Volume 98 fL (80-100); Mean Platelet Volume 9.9 fL (9.1-12.4); NEUTROPHILS ABSOLUTE AUTO 4.95 K/mm3 (1.96-9.15); NEUTROPHILS PERCENT AUTO 58 % (41-73); Platelet Count 374 K/mm3 (150-400); RDW Coefficient Variation 12.8 % (11.7-14.2); RDW Standard Deviation 45.8 fL (35.1-46.3); Red Blood Cell Count 3.37 M/mm3 (3.80-5.20); White Blood Cell Count 8.56 K/mm3 (4.00-11.30)
[2020-02-21 13:43] LABS: Alanine Aminotransfer (ALT/SGP 22 U/L (12-78); Albumin, Blood 3.2 g/dL (3.4-5.0); Albumin/Globulin Ratio 0.7 (0.8-1.8); Alk Phos 84 U/L (50-136); Anion Gap 7 mmol/L (6-16); Aspartate Aminotrans (AST/SGOT 19 U/L (12-37); Bilirubin, Total 0.4 mg/dL (0.1-1.0); Blood Urea Nitrogen 17 mg/dL (8-24); Bun/Creatinine Ratio 12.8 (12.0-20.0); CO2, Blood 25 mmol/L (21-32); Calcium, Blood 9.2 mg/dL (8.5-10.1); Chloride, Blood 107 mmol/L (98-108); Creatinine, Blood 1.33 mg/dL (0.40-1.00); Globulin, Blood 4.7 g/dL (2.2-4.0); Glomerular Filtration Rate 41 (60-); Glucose, Blood 132 mg/dL (70-99); Sodium, Blood 139 mmol/L (136-145); Total Protein, Blood 7.9 g/dL (6.4-8.2); Troponin I <0.015 ng/mL (0.000-0.040)
== END 2020-02-21 16:54 | disposition home or self-care (01) ==
LOC: ER 11:52
PROVIDERS: Emergency Medicine
DX: M54.12 Radiculopathy, cervical region (principal); G89.18 Other acute postprocedural pain; I10 Essential (primary) hypertension; E78.5 Hyperlipidemia, unspecified; J44.9 Chronic obstructive pulmonary disease, unspecified; E11.9 Type 2 diabetes mellitus without complications; E03.9 Hypothyroidism, unspecified; I25.10 Atherosclerotic heart disease of native coronary artery without angina pectoris; Z88.5 Allergy status to narcotic agent; Z88.8 Allergy status to other drugs, medicaments and biological substances; Z88.4 Allergy status to anesthetic agent; Z79.899 Other long term (current) drug therapy; Z86.718 Personal history of other venous thrombosis and embolism; Z95.5 Presence of coronary angioplasty implant and graft
CPT/HCPCS: 36415; 80053; 83880; 84484; 85025; 93005; 93010; 96374; 96375; 99283-25; J1100; J2270; J2405

== ENCOUNTER 2020-09-06 17:58 | Emergency (ER) | payer BC ==
[~2020-09-06] VITALS: Ht 160 cm; Wt 108.9 kg
[2020-09-06] MEDS ORDERED: CYCL10 PO (20:04)
== END 2020-09-06 20:13 | disposition home or self-care (01) ==
LOC: ER 17:58
DX: M79.605 Pain in left leg (principal); E11.9 Type 2 diabetes mellitus without complications; I10 Essential (primary) hypertension; I25.2 Old myocardial infarction; Z79.01 Long term (current) use of anticoagulants
CPT/HCPCS: 93971; 99283-25

== ENCOUNTER → 2021-04-22 | Outpatient (CLI) | payer BC ==
[2021-04-22 11:45] LABS: BASOPHILS ABSOLUTE AUTO 0.06 K/mm3 (0.00-0.23); BASOPHILS PERCENT AUTO 1 % (0-2); EOSINOPHILS ABSOLUTE AUTO 0.17 K/mm3 (0.00-0.68); EOSINOPHILS PERCENT AUTO 2 % (0-6); Hematocrit 38.4 % (33.0-51.0); Hemoglobin 12.6 g/dL (11.5-16.0); IMMATURE GRAN ABSOLUTE AUTO 0.03 K/mm3 (0.00-0.10); IMMATURE GRAN PERCENT AUTO 0 % (0-1); LYMPHOCYTES ABSOLUTE AUTO 2.08 K/mm3 (0.84-5.20); LYMPHOCYTES PERCENT AUTO 29 % (21-46); MONOCYTES ABSOLUTE AUTO 0.41 K/mm3 (0.16-1.47); MONOCYTES PERCENT AUTO 6 % (4-13); Mean Corpuscular HGB 30.4 pg (26.0-34.0); Mean Corpuscular HGB Conc 32.8 g/dL (31.5-36.5); Mean Corpuscular Volume 93 fL (80-100); Mean Platelet Volume 10.1 fL (9.1-12.4); NEUTROPHILS ABSOLUTE AUTO 4.45 K/mm3 (1.96-9.15); NEUTROPHILS PERCENT AUTO 62 % (41-73); Platelet Count 274 K/mm3 (150-400); RDW Coefficient Variation 13.8 % (11.7-14.2); RDW Standard Deviation 46.7 fL (35.1-46.3); Red Blood Cell Count 4.14 M/mm3 (3.80-5.20)
[2021-04-22 11:54] LABS: Albumin, Blood 3.9 g/dL (3.4-5.0); Bilirubin, Total 0.5 mg/dL (0.1-1.0); Bun/Creatinine Ratio 24.3 (12.0-20.0); Calcium, Blood 9.2 mg/dL (8.5-10.1); Creatinine, Blood 1.07 mg/dL (0.40-1.00); Globulin, Blood 3.8 g/dL (2.2-4.0); Potassium, Blood 4.8 mmol/L (3.5-5.5); Total Protein, Blood 7.7 g/dL (6.4-8.2)
== END ==
LOC: LAB SHORT 11:38 → LAB 11:38
PROVIDERS: Physician Assistant
DX: R22.42 Localized swelling, mass and lump, left lower limb (principal)
CPT/HCPCS: 80053; 85025

== ENCOUNTER 2022-07-11 10:44 | Emergency (ER) | payer BC ==
[~2022-07-11] VITALS: Ht 157.5 cm; Wt 87.5 kg
[2022-07-11 11:22] LABS: BASOPHILS ABSOLUTE AUTO 0.07 K/mm3 (0.00-0.23); BASOPHILS PERCENT AUTO 1 % (0-2); EOSINOPHILS ABSOLUTE AUTO 0.24 K/mm3 (0.00-0.68); EOSINOPHILS PERCENT AUTO 4 % (0-6); Hematocrit 38.1 % (33.0-51.0); Hemoglobin 12.5 g/dL (11.5-16.0); IMMATURE GRAN ABSOLUTE AUTO 0.03 K/mm3 (0.00-0.10); IMMATURE GRAN PERCENT AUTO 0 % (0-1); LYMPHOCYTES ABSOLUTE AUTO 1.45 K/mm3 (0.84-5.20); LYMPHOCYTES PERCENT AUTO 21 % (21-46); MONOCYTES ABSOLUTE AUTO 0.63 K/mm3 (0.16-1.47); MONOCYTES PERCENT AUTO 9 % (4-13); Mean Corpuscular HGB 29.9 pg (26.0-34.0); Mean Corpuscular HGB Conc 32.8 g/dL (31.5-36.5); Mean Corpuscular Volume 91 fL (80-100); Mean Platelet Volume 10.1 fL (9.1-12.4); NEUTROPHILS ABSOLUTE AUTO 4.52 K/mm3 (1.96-9.15); NEUTROPHILS PERCENT AUTO 65 % (41-73); Platelet Count 225 K/mm3 (150-400); RDW Coefficient Variation 13.7 % (11.7-14.2); RDW Standard Deviation 46.2 fL (35.1-46.3); Red Blood Cell Count 4.18 M/mm3 (3.80-5.20); White Blood Cell Count 6.94 K/mm3 (4.00-11.30)
[2022-07-11 11:42] LABS: Albumin, Blood 3.5 g/dL (3.4-5.0); Albumin/Globulin Ratio 0.9 (0.8-1.8); Bilirubin, Total 0.6 mg/dL (0.1-1.0); Bun/Creatinine Ratio 16.3 (12.0-20.0); Creatinine, Blood 0.86 mg/dL (0.40-1.00); Globulin, Blood 3.9 g/dL (2.2-4.0); Potassium, Blood 4.2 mmol/L (3.5-5.5); Total Protein, Blood 7.4 g/dL (6.4-8.2)
[2022-07-11] MEDS ORDERED: PRED20 PO (15:22)
== END 2022-07-11 15:52 | disposition home or self-care (01) ==
LOC: ER 10:44
PROVIDERS: Physician Assistant
DX: R05.9 Cough, unspecified (principal); R06.02 Shortness of breath; B97.4 Respiratory syncytial virus as the cause of diseases classified elsewhere; E11.9 Type 2 diabetes mellitus without complications; I10 Essential (primary) hypertension; J44.9 Chronic obstructive pulmonary disease, unspecified; E03.9 Hypothyroidism, unspecified; I25.10 Atherosclerotic heart disease of native coronary artery without angina pectoris; Z79.899 Other long term (current) drug therapy; Z79.890 Hormone replacement therapy; Z79.02 Long term (current) use of antithrombotics/antiplatelets; Z88.8 Allergy status to other drugs, medicaments and biological substances; Z95.5 Presence of coronary angioplasty implant and graft
CPT/HCPCS: 36415; 71046; 80053; 85025; 94640; 94664; 96374; 99284-25; J1885

== ENCOUNTER 2022-09-07 06:55 | Day surgery (SDC) | payer BC, MEDICARE ==
[~2022-09-07] VITALS: Ht 160 cm; Wt 87.5 kg
[~2022-09-07 06:55] MED LIST changes: +ALBU2.5V5 INH; +Aspir 8181 MG PO; +Cranberry400 MG PO; +Cyclobenzaprine10 MG PO; +FISH OIL; +FLONASE SENSIM5.9 M1; +GLUCHON PO; +ICOSAPENT ETHYL1 GM PO; +Isosorbide Mono30 MG PO; +LEVSOD100; +MERIBIN5 MG PO; +PRED20 PO; +PREG75 PO; +Prinivil10 MG PO; +Robaxin750 MG PO; +TRELEGY ELLIPT1 EACH IH; +Tessalon200 MG PO; +XARELTO1 EAC1 PO; +ZYRTEC10 M2 PO
[2022-09-07 07:22] VITALS: BP 178/82
[2022-09-07 10:30] VITALS: BP 141/108
[2022-09-07 10:45] VITALS: BP 135/101
[2022-09-07 11:00] VITALS: BP 135/121
--- NOTE | 2022-09-07 11:09 | NUR ---
PT SITTING UP IN BED EATING FOOD. PT A&Ox4. FAMILY AT BEDSIDE. BILAT SITES SOFT AND NON-TENDER
[2022-09-07 11:15] VITALS: BP 146/133
[2022-09-07 11:30] VITALS: BP 123/73
--- NOTE | 2022-09-07 11:52 | NUR ---
FLOWSTASIS REMOVED. NO BLEEDING NOTED TO EITHER SITE. BOTH SITES SOFT AND NON-TENDER. PT FINISHED W/ LUNCH TRAY.
--- NOTE | 2022-09-07 12:25 | NUR ---
PT GIVEN DC INSTRUCTIONS AND VERBALIZED UNDERSTANDING. IV OUT. PT CHANGED INTO CLOTHES. BOTH SITES SOFT AND NON-TENDER. NO BLEEDING NOTED. PT TAKEN TO [facility] VIA WC. DAUGHTER TO TAKE PT HOME.
== END 2022-09-07 12:15 | disposition home or self-care (01) ==
LOC: MHTC 06:55
DX: E11.51 Type 2 diabetes mellitus with diabetic peripheral angiopathy without gangrene (principal); I82.4Y2 Acute embolism and thrombosis of unspecified deep veins of left proximal lower extremity; I12.9 Hypertensive chronic kidney disease with stage 1 through stage 4 chronic kidney disease, or unspecified chronic kidney disease; E11.22 Type 2 diabetes mellitus with diabetic chronic kidney disease; N18.9 Chronic kidney disease, unspecified; I25.10 Atherosclerotic heart disease of native coronary artery without angina pectoris; K21.9 Gastro-esophageal reflux disease without esophagitis; E78.5 Hyperlipidemia, unspecified; G47.33 Obstructive sleep apnea (adult) (pediatric); Z88.1 Allergy status to other antibiotic agents; Z88.6 Allergy status to analgesic agent; Z79.82 Long term (current) use of aspirin; Z79.890 Hormone replacement therapy; Z79.899 Other long term (current) drug therapy
CPT/HCPCS: 76937; 99152; 99153; C1725; C1769; C1887; C1894; J1644; J2250; J3010; J7030; J7040; Q9967

== ENCOUNTER 2023-05-24 20:03 | Emergency (ER) | payer BC ==
[~2023-05-24] VITALS: Ht 167.6 cm; Wt 90.7 kg
[2023-05-24 22:59] LABS: BASOPHILS ABSOLUTE AUTO 0.07 K/mm3 (0.00-0.23); BASOPHILS PERCENT AUTO 1 % (0-2); EOSINOPHILS ABSOLUTE AUTO 0.25 K/mm3 (0.00-0.68); EOSINOPHILS PERCENT AUTO 4 % (0-6); Hemoglobin 11.9 g/dL (11.5-16.0); IMMATURE GRAN ABSOLUTE AUTO 0.02 K/mm3 (0.00-0.10); IMMATURE GRAN PERCENT AUTO 0 % (0-1); LYMPHOCYTES ABSOLUTE AUTO 2.64 K/mm3 (0.84-5.20); LYMPHOCYTES PERCENT AUTO 37 % (21-46); MONOCYTES ABSOLUTE AUTO 0.57 K/mm3 (0.16-1.47); MONOCYTES PERCENT AUTO 8 % (4-13); Mean Corpuscular HGB Conc 32.2 g/dL (31.5-36.5); Mean Corpuscular Volume 93 fL (80-100); Mean Platelet Volume 9.7 fL (9.1-12.4); NEUTROPHILS ABSOLUTE AUTO 3.55 K/mm3 (1.96-9.15); NEUTROPHILS PERCENT AUTO 50 % (41-73); Platelet Count 255 K/mm3 (150-400); RDW Coefficient Variation 13.2 % (11.7-14.2); Red Blood Cell Count 3.97 M/mm3 (3.80-5.20)
[2023-05-24 23:31] LABS: Albumin, Blood 3.5 g/dL (3.4-5.0); Albumin/Globulin Ratio 0.8 (0.8-1.8); Bilirubin, Total 0.2 mg/dL (0.1-1.0); Bun/Creatinine Ratio 19.4 (12.0-20.0); Calcium, Blood 9.2 mg/dL (8.5-10.1); Creatinine, Blood 1.03 mg/dL (0.40-1.00); Globulin, Blood 4.2 g/dL (2.2-4.0); Phosphorus, Blood 3.1 mg/dL (2.5-4.9); Potassium, Blood 4.5 mmol/L (3.5-5.5); Thyroid Stimulating Hormone 1.64 uIU/mL (0.360-4.800); Total Protein, Blood 7.7 g/dL (6.4-8.2)
[2023-05-24 23:33] LABS: Source, Urine Clean Catch
[2023-05-24 23:48] LABS: Bilirubin, Urine Neg (Neg); Blood, Urine Neg (Neg); Glucose Qualitative, Urine Neg (Neg); Ketones, Urine Neg (Neg); Leukocyte Esterase, Urine Neg (Neg); Nitrite, Urine Neg (Neg); Protein, Urine 1+ (Neg); Urobilinogen, Urine NORM (Normal)
[2023-05-24 23:54] LABS: Appearance, Urine Clear (Clear); Color, Urine Pale Yellow (P-Yellow)
[2023-05-25 00:30] VITALS: BP 102/86
== END 2023-05-25 02:10 | disposition home or self-care (01) ==
LOC: ER 20:03
PROVIDERS: Emergency Medicine
DX: E86.0 Dehydration (principal); S09.90XA Unspecified injury of head, initial encounter; I12.9 Hypertensive chronic kidney disease with stage 1 through stage 4 chronic kidney disease, or unspecified chronic kidney disease; E11.22 Type 2 diabetes mellitus with diabetic chronic kidney disease; N18.9 Chronic kidney disease, unspecified; E78.5 Hyperlipidemia, unspecified; J44.9 Chronic obstructive pulmonary disease, unspecified; E03.9 Hypothyroidism, unspecified; I25.10 Atherosclerotic heart disease of native coronary artery without angina pectoris; Z79.01 Long term (current) use of anticoagulants; Z79.51 Long term (current) use of inhaled steroids; Z79.82 Long term (current) use of aspirin; Z79.899 Other long term (current) drug therapy; Z88.1 Allergy status to other antibiotic agents; Z88.8 Allergy status to other drugs, medicaments and biological substances; W18.11XA Fall from or off toilet without subsequent striking against object, initial encounter; Y92.009 Unspecified place in unspecified non-institutional (private) residence as the place of occurrence of the external cause; Y93.89 Activity, other specified
CPT/HCPCS: 70450; 71101; 73060; 73090; 80053; 83735; 84100; 84443; 84484; 85025; 85379; 93005; 93010; 96360; 99285-25; J7030

== ENCOUNTER 2024-07-10 12:08 | Emergency (ER) | payer BC ==
[~2024-07-10] VITALS: Ht 160 cm; Wt 80.7 kg
[2024-07-10 12:11] VITALS: BP 156/69
[2024-07-10] MEDS ORDERED: Ondansetron 4 MG SoluTab SL ONE (14:30)
== END 2024-07-10 14:55 | disposition home or self-care (01) ==
LOC: ER 12:08
DX: S00.83XA Contusion of other part of head, initial encounter (principal); E11.9 Type 2 diabetes mellitus without complications; I10 Essential (primary) hypertension; Z79.899 Other long term (current) drug therapy; Z79.82 Long term (current) use of aspirin; Z79.84 Long term (current) use of oral hypoglycemic drugs; W18.30XA Fall on same level, unspecified, initial encounter
CPT/HCPCS: 70450; 72125; 99283-25; A9270

== ENCOUNTER 2024-08-21 22:53 | Emergency (ER) | payer BC ==
[~2024-08-21] VITALS: Ht 162.6 cm; Wt 97.5 kg
[2024-08-21 23:35] LABS: BASOPHILS ABSOLUTE AUTO 0.09 K/mm3 (0.00-0.23); BASOPHILS PERCENT AUTO 2 % (0-2); EOSINOPHILS PERCENT AUTO 2 % (0-6); Hematocrit 36.4 % (33.0-51.0); Hemoglobin 11.4 g/dL (11.5-16.0); IMMATURE GRAN ABSOLUTE AUTO 0.02 K/mm3 (0.00-0.10); IMMATURE GRAN PERCENT AUTO 0 % (0-1); LYMPHOCYTES ABSOLUTE AUTO 1.18 K/mm3 (0.84-5.20); LYMPHOCYTES PERCENT AUTO 19 % (21-46); MONOCYTES ABSOLUTE AUTO 0.77 K/mm3 (0.16-1.47); MONOCYTES PERCENT AUTO 13 % (4-13); Mean Corpuscular HGB 28.4 pg (26.0-34.0); Mean Corpuscular HGB Conc 31.3 g/dL (31.5-36.5); Mean Corpuscular Volume 91 fL (80-100); Mean Platelet Volume 10.1 fL (9.1-12.4); NEUTROPHILS PERCENT AUTO 65 % (41-73); Platelet Count 229 K/mm3 (150-400); RDW Coefficient Variation 14.2 % (11.7-14.2); RDW Standard Deviation 46.5 fL (35.1-46.3); Red Blood Cell Count 4.02 M/mm3 (3.80-5.20); White Blood Cell Count 6.16 K/mm3 (4.00-11.30)
[2024-08-21 23:56] LABS: Albumin, Blood 3.7 g/dL (3.4-5.0); Albumin/Globulin Ratio 0.9 (0.8-1.8); Bilirubin, Total 0.3 mg/dL (0.1-1.0); Bun/Creatinine Ratio 18.5 (12.0-20.0); Calcium, Blood 8.9 mg/dL (8.5-10.1); Creatinine, Blood 1.46 mg/dL (0.40-1.00); Globulin, Blood 4.1 g/dL (2.2-4.0); Potassium, Blood 4.6 mmol/L (3.5-5.5); Total Protein, Blood 7.8 g/dL (6.4-8.2)
[2024-08-22 02:38] LABS: Source, Urine Clean Catch
[2024-08-22 02:40] LABS: Appearance, Urine Hazy (Clear); Blood, Urine Neg (Neg); Color, Urine Yellow (P-Yellow); Glucose Qualitative, Urine Neg (Neg); Ketones, Urine Neg (Neg); Leukocyte Esterase, Urine 2+ (Neg); Nitrite, Urine Neg (Neg); Protein, Urine 2+ (Neg); Urobilinogen, Urine NORM (Normal)
[2024-08-22 03:16] LABS: Bilirubin, Urine 1+ (Neg)
[2024-08-22 03:17] LABS: Bacteria Many /hpf; Red Blood Cells, Urine 0-2 /hpf (0-2); Squamous Epithelial Cells Many /hpf (Few)
[2024-08-22] MEDS ORDERED: CefTRIAXone Sodium 1,000 MG in NS 50 ML IV ONE (03:35)
[2024-08-22] MEDS ORDERED: NS 1,000 ML IV SCH (03:35)
[2024-08-22] MEDS ORDERED: Ipratropium/Albuterol SulF 2.5-0.5MG/3 ML Amp INH ONE (03:40)
[2024-08-22] MEDS ORDERED: CEPH500 PO (03:41)
[2024-08-22 05:20] VITALS: BP 143/56
== END 2024-08-22 05:28 | disposition home or self-care (01) ==
LOC: ER 22:53
PROVIDERS: Student in an Organized Health Care Education/Training Program
DX: N39.0 Urinary tract infection, site not specified (principal); E86.0 Dehydration; R42 Dizziness and giddiness; R79.89 Other specified abnormal findings of blood chemistry; I10 Essential (primary) hypertension; E78.5 Hyperlipidemia, unspecified; J44.9 Chronic obstructive pulmonary disease, unspecified; E03.9 Hypothyroidism, unspecified; I25.10 Atherosclerotic heart disease of native coronary artery without angina pectoris; Z88.8 Allergy status to other drugs, medicaments and biological substances; Z79.82 Long term (current) use of aspirin; Z79.899 Other long term (current) drug therapy; Z79.890 Hormone replacement therapy; E11.9 Type 2 diabetes mellitus without complications
CPT/HCPCS: 71046; 80053; 81001; 84484; 85025; 87086; 93005; 93010; 94640; 94664; 96365; 99284-25; J0696; J7030